=== PATIENT | female | born 1940 | race Caucasian/White ===

== ENCOUNTER 2018-08-14 09:37 | Emergency (ER) | payer OTHER ==
--- NOTE | 2018-08-14 09:58 | EDPHY ---
H & P Time Seen by Provider: 08/14/18 09:47 HPI/ROS: CHIEF COMPLAINT: Persistent cough HISTORY OF PRESENT ILLNESS: Patient presents with 6 days of worsening cough which is nonproductive. She describes it as paroxysmal and associated with a temperature up to 100 degrees F yesterday. She denies shortness of breath or chest pain. Today she was in the shower and drying her hair and felt hot and had nausea and sat down on the edge of the shower. That she went to go needle by the toilet and had a brief episode of syncope and wedge herself between the toilet and the wall bruising or forehead and wrenching her back a little bit. She went to urgent care but because of the syncope was referred here. She is really concerned mostly about the cough. She denies headache or neck pain or weakness or numbness in extremities. No hemoptysis or leg swelling. REVIEW OF SYSTEMS: Eye: no change in vision ENT: no sore throat Cardiac: HPI Pulmonary: HPI Abdomen: no vomiting, diarrhea, abdominal pain Musculoskeletal: No back or neck pain Skin: Left forehead abrasion Neuro: no headache Constitutional: no fever : no urinary symptoms A comprehensive 10 point review of systems is otherwise negative aside from elements mentioned in the history of present illness. PAST MEDICAL HISTORY: Negative Social history: Nonsmoker no recent travel or immobilization General Appearance: Alert and conversant, cooperative. Eyes: No scleral icterus. ENT, Mouth: Normal mucous membranes. No hemotympanum. No facial bony tenderness. Respiratory: No wheezing or rales, speaks in full sentences. Breath sounds are equal and no focal lung sounds. No consolidation. Cardiovascular: Regular rate and rhythm. No murmur. Gastrointestinal: Abdomen is soft and non tender. Neurological: Alert, face symmetric, normal motor and sensory in extremities. Fluent speech, ambulatory without ataxia. Skin: Less than 1 cm left forehead abrasion. Musculoskeletal: No midline spinal or extremity tenderness. Psychiatric: Not agitated. Emergency Department course/MDM: Patient presents with worsening paroxysmal cough and subjective fevers. She looks well and nontoxic would like to be treated as outpatient and minimize testing of possible which I think is reasonable. Because of the possibility of pertussis, and age I think it is reasonable to empirically treat her with a a macrolide. I think that her syncope was most likely to be vasovagal. Her EKG shows sinus rhythm. She does not have a headache and has a little abrasion but did not likely sustain significant head trauma. Discharge with head injury instructions, empiric macrolide treatment. Think that malignant dysrhythmia or seizure or pulmonary embolus or ACS or subdural or epidural or traumatic subarachnoid are all unlikely. Smoking Status: Never smoked Constitutional: Initial Vital Signs Temperature (C) 36.6 C 08/14/18 09:42 Heart Rate 106 H 08/14/18 09:42 Respiratory Rate 18 08/14/18 09:42 Blood Pressure 130/69 H 08/14/18 09:42 O2 Sat (%) 93 08/14/18 09:42 O2 Delivery Mode Room Air Allergies/Adverse Reactions: clindamycin Allergy (Verified 08/14/18 09:45) Home Medications: Medication Instructions Recorded Azithromycin [Zithromax] 250 mg PO DAILY #6 tab 08/14/18 Metamucil 08/14/18 Medical Decision Making - Diagnostics EKG Interpretation: 12-lead EKG interpreted by me; official reading is in computer system. My interpretation is sinus rhythm rate 96 with LVH and otherwise normal intervals. Departure - Departure Disposition: Home, Routine, Self-Care Clinical Impression: Cough, Vasovagal syncope Condition: Good Instructions: Azithromycin (By mouth), Syncope (ED), Head Injury (ED) Referrals: Markie Mancia MD [Primary Care Provider] - 1-2 days without fail Prescriptions: Azithromycin [Zithromax] 250 mg PO DAILY #6 tab
[2018-08-14 10:35] VITALS: BP 127/79
--- NOTE | 2018-08-14 11:18 | CPEKG ---
Test Reason : OPEN Blood Pressure : / mmHG Vent. Rate : 096 BPM Atrial Rate : 096 BPM P-R Int : 139 ms QRS Dur : 090 ms QT Int : 358 ms P-R-T Axes : 075 019 055 degrees QTc Int : 453 ms Sinus rhythm Probable left atrial enlargement Left ventricular hypertrophy Nonspecific T abnrm, anterolateral leads Confirmed by Jesus Alberto Serrato ([id number]) on 08/14/2018 11:17:21 AM Referred By: Jesus Alberto Serrato Confirmed By:Jesus Alberto Serrato
== END 2018-08-14 10:34 | disposition home or self-care (01) ==
DX: R05 Cough (principal); R55 Syncope and collapse

== ENCOUNTER → 2018-08-16 | Outpatient (CLI) | payer OTHER | LOC: FIMAGING 14:55 ==